=== PATIENT | female | born 1970 | race Caucasian/White ===

== ENCOUNTER 2021-07-06 18:10 | Emergency (ER) | payer SELFPAY ==
--- NOTE | 2021-07-06 20:30 | NUR ---
PATIENT WAS CALLED TO [facility] TRIAGED BUT WAS NOT PRESENT IN THE [facility] ROOM OR OUTSIDE OF ER.
--- NOTE | 2021-07-06 21:00 | NUR ---
PATIENT WAS CALLED TO BE TRIAGED BUT WAS NOT PRESENT IN THE WAITING ROOM.
--- NOTE | 2021-07-06 21:30 | NUR ---
PATIENT WAS CALLED TO BE TRIAGED BUT WAS NOT PRESENT IN [facility] WAITING ROOM OR OUTSIDE OF ER. PATIENT WAS NOT TRIAGED OR SEEN BY [facility].
== END 2021-07-06 21:30 | disposition left against medical advice (07) ==
LOC: ER 18:15
DX: Z53.21 Procedure and treatment not carried out due to patient leaving prior to being seen by health care provider (principal)